=== PATIENT | male | born 1990 | race Caucasian/White ===

== ENCOUNTER → 2021-03-02 | Outpatient (CLI) | payer BC ==
--- NOTE | 2021-03-06 17:38 | P.STRESS ---
- Stress Test Note Stress Test Results/Findings: Exam Performed: stress test Exam Date: 03/02/21 Reason for Exam: CP Height: 5 ft 11 in Weight: 95 kg Protocol: KEN Stage: 5 Duration of Exercise: 13:00 Resting Heart Rate: 76 Resting Blood Pressure: 123/97 Maximum Achieved Heart Rate: 174 Maximum Achieved Blood Pressure: 150/67 85% PMHR: 160 100% PMHR: 188 METS: 13.5 Technologist Comment: Stress Test Results/Findings: Baseline heart rate 76 beats a minute, Baseline blood pressure 123/77 mmHg The central EKG showed sinus rhythm with early repolarization and amenity Patient exercised on a Ken protocol for 13 minutes Achieving a peak heart rate of 174 beats a minute Normal blood pressure response to exercise There was no ECG ms for ischemia No arrhythmias were noted Impression Excellent excess capacity and a Ken protocol Normal heart rate and blood pressure response Early repolarization abnormality on the central EKG No ECG and multis during stress test No arrhythmias
== END | disposition home or self-care (01) ==
LOC: RADNMMAIN 10:26
PROVIDERS: ATTEND Family Medicine
DX: R94.31 Abnormal electrocardiogram [ECG] [EKG] (principal); R07.9 Chest pain, unspecified
CPT/HCPCS: 93017